=== PATIENT | female | born 2005 | race Two or more races ===

== ENCOUNTER → 2025-07-04 | Outpatient (CLI) | payer OTHER, SELFPAY | END | disposition home or self-care (01) | LOC: SLDO 14:00 | PROVIDERS: Referring Provider Nurse Practitioner Family; Visit Provider Nurse Practitioner Family | DX: N39.41 Urge incontinence (principal) | CPT/HCPCS: 87077; 87086; 87186 ==

== ENCOUNTER → 2025-07-26 | Outpatient (CLI) | payer OTHER, SELFPAY ==
[2025-07-26 09:19] LABS: Basophils # (Auto) 0.1 Thou/mm3 (0.0-0.2); Basophils % (Auto) 1 % (0-2.5); Eosinophils # (Auto) 0.1 Thou/mm3 (0.0-0.5); Eosinophils % (Auto) 2 % (0-10); Hematocrit 37.1 % (36.0-46.0); Hemoglobin 12.4 g/dL (12.0-16.0); Immature Granulocytes Auto 0.01 Thou/mm3 (0.00-0.00); Lymphocytes # (Auto) 2.0 Thou/mm3 (1.0-4.8); Lymphocytes % (Auto) 33 % (10-50); Mean Corpuscular HGB Conc 33.4 g/dl (31.0-37.0); Mean Corpuscular Hemoglobin 32.1 pg (25.0-35.0); Mean Corpuscular Volume 96 fL (80-100); Monocytes # (Auto) 0.6 Thou/mm3 (0.0-0.8); Monocytes % (Auto) 10 % (0-12); Neutrophils # (Auto) 3.4 Thou/mm3 (1.8-7.7); Neutrophils % (Auto) 55 % (37-80); Nucleated Red Blood Cell # 0.00 Thou/mm3 (0.00-0.00); Nucleated Red Blood Cell % 0 /100 WBC (0); Platelet Count 257 Thou/mm3 (140-440); RDW Standard Deviation 49.0 fL (36.4-46.3); Red Blood Count 3.86 Miln/mm3 (4.00-5.20); White Blood Count 6.1 Thou/mm3 (4.5-11.0)
[2025-07-26 09:33] LABS: Iron 84 mcg/dL (50-170)
[2025-07-26 09:39] LABS: Alanine Aminotransferase 12 U/L (10-49); Albumin, Serum 4.4 gm/dL (3.5-5.0); Albumin/Globulin Ratio 2.1 (1.2-2.2); Alkaline Phosphatase 44 U/L (46-116); Anion Gap 11 (7-16); Aspartate Amino Transferase 16 U/L (0-34); BUN/Creatinine Ratio 17 Ratio (12-20); Bilirubin,Total 0.4 mg/dL (0.3-1.2); Blood Urea Nitrogen 15 mg/dL (9-23); Calcium 8.9 mg/dL (8.3-10.6); Calcium (Corrected) 8.9 mg/dL (8.5-10.1); Carbon Dioxide 26.7 mMol/L (20.0-31.0); Cardiac Risk Estimate 2.3 RATIO (3.7-5.6); Chloride 105 mMol/L (98-107); Cholesterol 144 mg/dL (132-200); Creatinine (Component) 0.9 mg/dL (0.6-1.3); Globulin 2.1 gm/dL (2.3-3.5); Glucose 89 mg/dL (74-106); HDL Cholesterol 63 mg/dL (40-60); LDL Cholesterol,Calculated 72 mg/dL (0-130); Osmolality,Calculated 284 (275-295); Potassium 4.8 mMol/L (3.4-5.1); Sodium 143 mMol/L (136-145); Thyroid Stimulating Hormone 1.71 uIU/mL (0.55-4.78); Total Protein 6.5 gm/dL (5.7-8.2); Triglycerides 43 mg/dL (30-150); eGFR > 60 See Note
[2025-07-26 09:41] LABS: Vitamin B12 822 pg/mL (211-911); Vitamin D 25 Hydroxy Total 33.7 ng/mL (7.3-40.2)
== END | disposition home or self-care (01) ==
LOC: COPL 07:37
PROVIDERS: PCP Family Medicine; Referring Provider Nurse Practitioner Family; Visit Provider Nurse Practitioner Family
DX: Z00.00 Encounter for general adult medical examination without abnormal findings (principal); N39.41 Urge incontinence
CPT/HCPCS: 36415; 80053; 80061; 82306; 82607; 83540; 84443; 85025; 87086